=== PATIENT | female | born 2000 | race African-American/Black ===

== ENCOUNTER 2023-12-20 18:17 | Observation (INO) | payer OTHER, SELFPAY ==
[2023-12-20 18:56] LABS: Appearance Urine UA CLEAR; Bilirubin Urine UA NEGATIVE (NEGATIVE); Color Urine UA YELLOW; Glucose Urine UA NEGATIVE (Negative); Ketones Urine UA NEGATIVE (NEGATIVE); Leukocyte Esterase Urine UA 1+ (NEGATIVE); Nitrite Urine UA NEGATIVE (Negative); Occult Blood Urine UA NEGATIVE (Negative); Protein Urine UA NEGATIVE (Negative); Specific Gravity Urine UA 1.015 (1.000-1.035); Urobilinogen Urine UA 0.2 E.U./dL (0.2); pH Urine UA 6.5 (4.5-8.0)
[2023-12-20 19:08] LABS: Add Manual Diff / Slide Review NO; Basophils Absolute Auto 100 /uL (0-100); Basophils Percent Auto 0.5 % (0-2); Eosinophils Absolute Auto 100 /uL (0-450); Eosinophils Percent Auto 0.4 % (2-4); Hematocrit 32.4 % (36-46); Hemoglobin 10.7 g/dL (12.0-16.0); Lymphocytes Absolute Auto 1900 /uL (1100-4500); Lymphocytes Percent Auto 15.7 % (25-40); Mean Corpuscular HGB Conc 33.1 % (30-36); Mean Corpuscular Hemoglobin 29.6 PG (26-34); Mean Corpuscular Volume 89.4 fL (80-100); Monocytes Absolute Auto 900 /uL (0-900); Monocytes Percent Auto 7.6 % (3-14); Neutrophils Absolute Auto 9100 /uL (1500-7000); Neutrophils Percent Auto 75.8 % (50-75); Platelet Count 210 X10^3/uL (150-400); Red Blood Cell Count 3.63 X10^6/uL (4.0-5.2); Red Cell Distribution Width 13.1 % (11.6-14.8)
[2023-12-20 19:12] LABS: RBC Urine None Seen (0-5/HPF); Urine Volume 10mL (spun)
[2023-12-20 19:13] LABS: Bacteria Urine Many (>30); Culture Indicated Urine Specimen Cultured; Squamous Epithelial Cell Urine 1-5 /HPF (0-5/HPF); WBC Urine 5-10/HPF (0-5/HPF)
--- NOTE | 2023-12-20 20:05 | P.TNLD_ITS ---
Visit Information Visit Information Date of evaluation: 12/20/23 On-call OB Provider: Swathi Jesus Reason for Evaluation: Yes rule out labor Comments/Additional reasons for admission: abdominal cramping Vital Signs Vital Signs: BP 125/64 HR 73 SpO2 97% RA FHR: baseline 145bpm, mod jass, +accels, no decels, contractions q1-5min, palpate moderate PFSH Medical History Healthy adult Surgical History (Updated 11/19/23 @ 09:43 by Raquel Gupta, RN) No pertinent past surgical history Family History (Updated 11/19/23 @ 09:46 by Raquel Gupta, RN) Sister Type 1 diabetes Father Type 2 diabetes mellitus Uncle Type 2 diabetes mellitus Grandfather Kidney failure Grandmother Heart attack Social History marital status: number of children: 0 household members: spouse lives independently: No caregiver/support person: No housing: apartment pets and animals: No education level: high school occupational status: unemployed current occupational exposures/hazards: No special neil needs: No travel history: recent (cross country move) and over 6 months ago seatbelt use: always water heater temp set < 120 deg: Yes working smoke detector in home: Yes fire extinguisher in home: Yes carbon monox detector in home: Yes firearms in home: No do you feel safe at home: Yes Smoking Status: Never smoker second hand exposure: Yes ( vapes) alcohol intake: former (~3 glasses wine/week when not ) substance use type: marijuana (agrees not to use while /) during the past year weight has: decreased > 10 lbs (intentional w/ diet and exercise) well-balanced diet: about half the time daily servings fruits/ve-1 caffeine: No (only rarely) Type(s) of exercise: walking and weight lifting frequency: 3-4 times per week Review of Systems Review of Systems Narrative: as per HPI Exam Vital Signs (past 8 hours): as documented Narrative Exam Narrative: well-appearing gravid female NAD, talking and laughing through contractions per tocometry Const General: cooperative Nutritional Appearance: average body habitus HENMT Head: normal to inspection Neck Neck: normal visual inspection Resp Effort & Inspection: normal respiratory effort GI Inspection: normal to inspection Other: gravid, size c/w dates Uterus Location (Fundal Height): 33 Presentation: vertex Other: normal external female genitalia perineum and anus without rash or lesion, urethral meatus wnl cervix and vagina visually wnl, noted physiologic discharge without abnormality, cervix without erythema or exudate diffusely non-tender on bimanual exam GBS collected Skin General: no rashes or lesions noted Neuro General: patient alert Extrem General: normal to inspection Psych Appearance: grossly normal Objective Labs 12/20/23 19:00 Labs: Laboratory Results - last 24 hr 12/20/23 12/20/23 18:45 19:00 WBC 12.0 H RBC 3.63 L Hgb 10.7 L Hct 32.4 L MCV 89.4 MCH 29.6 MCHC 33.1 RDW 13.1 Plt Count 210 Neut % (Auto) 75.8 H Lymph % (Auto) 15.7 L [place] % (Auto) 7.6 Eos % (Auto) 0.4 L Baso % (Auto) 0.5 Neut # (Auto) 9100 H Lymph # (Auto) 1900 [place] # (Auto) 900 Eos # (Auto) 100 Baso # (Auto) 100 Urine Color Yellow Urine Appearance Clear Urine pH 6.5 Ur Specific Harrell 1.015 Urine Protein Negative Urine Glucose (UA) Negative Urine Ketones Negative Urine Occult Blood Negative Urine Nitrate Negative Urine Bilirubin Negative Urine Urobilinogen 0.2 Ur Leukocyte Esterase 1+ H Urine RBC None seen Urine WBC 5-10/hpf H Ur Squamous Epith Cells 1-5 /hpf Urine Bacteria Many (>30) H Ur Culture Indicated? Specimen cultured Vol Urine Centrifuged 10ml (spun) Evaluation Evaluation Baseline heart rate: 145 Variability: Moderate (11-25) monitor accelerations: Present Monitor Decelerations: Absent Contraction Frequency (minutes): 5 Uterine Contraction Intensity: Moderate Category of Tracing: Reactive Status: Category l Cervical dilation (cm): 0 Cervical effacement (%): 0 station: 0 Comments: very low station, cl/thk/hi/posterior Diagnosis, Plan/Disposition Plan/Disposition Plan: Threatened PTL without cervical dilation +bacteria in urine, clean catch will treat for uncomplicated UTI, 1g IV ceftriaxone now pt sensation of contractions improved with gentle IVF, continue full 1L bolus Reactive Cat 1 tracing, dc continuous monitoring If contractions space and pt remains asymptomatic anticipate dc to home following completion of IVF/IV abx GBS collected will send in jehovah's witness of recurrent PTL Strict labor/FM precautions, RTC as scheduled with Dr. Mendiola OB Disposition: home
[2023-12-20] MEDS: LACTATED RINGERS 1,000 ML 999 ML IV (20:21)
[2023-12-20] MEDS: cefTRIAXone 1,000 MG in SODIUM CHLORIDE 0.9% 100 ML 200 MG IV (20:21)
[2023-12-21 14:56] LABS: Strep Grp B PCR NEG for Grp B Strep
== END 2023-12-20 22:00 | disposition home or self-care (01) ==
LOC: LABOR 18:20
PROVIDERS: Admitting Provider Obstetrics & Gynecology; PCP Obstetrics & Gynecology; Referring Provider Obstetrics & Gynecology; Visit Provider Obstetrics & Gynecology
DX: O47.03 False labor before 37 completed weeks of gestation, third trimester (principal); Z3A.34 34 weeks gestation of pregnancy
CPT/HCPCS: 59025; 59050; 81001; 85025; 87086; 87653; 96360; G0378; G0379; J0696

== ENCOUNTER → 2023-12-25 09:39 | Outpatient (CLI) | payer OTHER, SELFPAY | PROVIDERS: PCP Obstetrics & Gynecology; Visit Provider Obstetrics & Gynecology | DX: R82.998 Other abnormal findings in urine (principal) | CPT/HCPCS: 87086 ==

== ENCOUNTER → 2024-01-01 07:15 | Outpatient (CLI) | payer OTHER, SELFPAY ==
--- NOTE | 2024-01-01 07:17 | DI.US.S_ITS ---
PROCEDURE: US OB LIMITED INDICATIONS: LGA OUTSIDE/PRIOR DATING DATA: Last menstrual period (LMP): 04/26/23. LMP-based estimated date of delivery (JOSE): 01/31/24. First dating scan (date and location): Not available. Estimated date of delivery (JOSE) from first dating scan: Not applicable. The calculations are made using the clinical JOSE of 01/31/24. TECHNIQUE: Real-time scanning was performed of the fetus, with image documentation and biometric measurements. Endovaginal scanning: Not performed COMPARISON: None. FINDINGS: General: A single living intrauterine gestation is present. Presentation: Vertex. Placenta: Placental position is anterior , without previa. Amniotic fluid index: 23.1 cm, normal range is 5-24 cm. Single deepest vertical pocket is 8.2 cm. heart rate: 133 beats per minute. Maternal cervical canal: Not well seen biometrics: Biparietal diameter: 9.0 cm, 36 weeks two days Head circumference: 31.9 cm, 36 weeks 0 days Abdominal circumference: 32.2 cm, 36 weeks one day Femur length: 7.0 cm, 35 weeks six days Clinically estimated gestational age: 35 weeks five days Composite gestational age from present scan: 36 weeks one day Estimated weight and percentile: 2831 g, 59th percentile IMPRESSION: Single living intrauterine with estimated weight at the 59th percentile. Amniotic fluid volume at the upper end of normal. Anterior placenta without abruption. We strive to produce accurate, complete, and clear reports of imaging services. To assist us in improving patient care, this report was composed using standard report templates and voice recognition software. Therefore, it may contain abnormal punctuation, insertions and/or omissions. Occasional wrong-word or sound-alike substitutions may occur. Though we review the report and make efforts to correct it, we do recommend that the report be read carefully in proper context to recognize any text inaccuracies. Dictated by: Amy Ellis M.D. on 01/01/2024 at 11:12 Approved by: Amy Ellis M.D. on 01/01/2024 at 11:20
== END ==
LOC: US 07:16
PROVIDERS: Referring Provider Obstetrics & Gynecology; Visit Provider Obstetrics & Gynecology
DX: O26.843 Uterine size-date discrepancy, third trimester (principal); Z3A.36 36 weeks gestation of pregnancy
CPT/HCPCS: 76815

== ENCOUNTER 2024-01-06 10:29 | Outpatient (CLI) | payer OTHER, SELFPAY ==
[2024-01-06 10:53] LABS: Appearance Urine UA CLEAR; Bilirubin Urine UA NEGATIVE (NEGATIVE); Color Urine UA YELLOW; Glucose Urine UA NEGATIVE (Negative); Ketones Urine UA NEGATIVE (NEGATIVE); Leukocyte Esterase Urine UA TRACE (NEGATIVE); Nitrite Urine UA NEGATIVE (Negative); Occult Blood Urine UA NEGATIVE (Negative); Protein Urine UA NEGATIVE (Negative); Urobilinogen Urine UA 0.2 E.U./dL (0.2); pH Urine UA 5.5 (4.5-8.0)
[2024-01-06 10:54] LABS: Urine Volume 10mL (spun)
[2024-01-06 10:55] LABS: Bacteria Urine Few (2-10); Culture Indicated Urine Specimen Cultured; RBC Urine None Seen (0-5/HPF); Squamous Epithelial Cell Urine 0-1 /HPF (0-5/HPF); WBC Urine 1-5/HPF (0-5/HPF)
== END 2024-01-06 11:05 | disposition home or self-care (01) ==
LOC: LABOR 11:10 → OB 01-09 09:35
PROVIDERS: Obstetrics & Gynecology; Referring Provider Obstetrics & Gynecology; Visit Provider Obstetrics & Gynecology
DX: Z36.9 Encounter for antenatal screening, unspecified (principal)
CPT/HCPCS: 59025; 81001; 87086; 87210; G0378; G0379

== ENCOUNTER → 2024-01-08 11:03 | Outpatient (CLI) | payer OTHER, SELFPAY ==
[2024-01-09 11:04] LABS: Strep Grp B PCR NEG for Grp B Strep
== END ==
PROVIDERS: Visit Provider Obstetrics & Gynecology
DX: Z34.03 Encounter for supervision of normal first pregnancy, third trimester (principal); Z3A.36 36 weeks gestation of pregnancy; R82.998 Other abnormal findings in urine
CPT/HCPCS: 87086; 87653

== ENCOUNTER 2024-01-15 09:23 | Outpatient (CLI) | payer OTHER, SELFPAY | END 2024-01-15 09:57 | disposition home or self-care (01) | LOC: OB 01-16 08:53 | PROVIDERS: Referring Provider Obstetrics & Gynecology; Visit Provider Obstetrics & Gynecology | DX: Z34.03 Encounter for supervision of normal first pregnancy, third trimester (principal); Z3A.37 37 weeks gestation of pregnancy | CPT/HCPCS: 59025; G0378; G0379 ==

== ENCOUNTER 2024-01-22 12:07 | Outpatient (CLI) | payer OTHER, SELFPAY | END 2024-01-22 12:50 | disposition home or self-care (01) | LOC: LABOR 12:20 → OB 01-23 14:04 | PROVIDERS: Referring Provider Obstetrics & Gynecology; Visit Provider Obstetrics & Gynecology | DX: Z34.03 Encounter for supervision of normal first pregnancy, third trimester (principal); Z3A.38 38 weeks gestation of pregnancy | CPT/HCPCS: 59025; G0378; G0379 ==

== ENCOUNTER 2024-01-29 10:31 | Observation (INO) | payer OTHER, SELFPAY | END 2024-01-29 11:17 | disposition home or self-care (01) | PROVIDERS: Admitting Provider Obstetrics & Gynecology; Referring Provider Obstetrics & Gynecology; Visit Provider Obstetrics & Gynecology | DX: O40.3XX0 Polyhydramnios, third trimester, not applicable or unspecified (principal); Z3A.39 39 weeks gestation of pregnancy | CPT/HCPCS: 59025; G0378; G0379 ==

== ENCOUNTER 2024-02-02 18:21 | Observation (INO) | payer OTHER, SELFPAY ==
[2024-02-02] MEDS: MORPHINE 10 MG/ML INJ IM (20:08)
[2024-02-02] MEDS: hydrOXYzine 50 MG/ML INJ 25 MG IM (20:08)
== END 2024-02-02 20:25 | disposition home or self-care (01) ==
LOC: LABOR 18:23
PROVIDERS: Admitting Provider Obstetrics & Gynecology; Referring Provider Obstetrics & Gynecology; Visit Provider Obstetrics & Gynecology
DX: O47.1 False labor at or after 37 completed weeks of gestation (principal); Z3A.40 40 weeks gestation of pregnancy; O48.0 Post-term pregnancy
CPT/HCPCS: 59025; 96372; G0378; G0379; J2270; J3410

== ENCOUNTER 2024-02-03 14:37 | Inpatient (IN) | payer OTHER, SELFPAY ==
--- NOTE | 2024-02-03 15:45 | PM.OBTRLD ---
Visit Information Visit Information Date of evaluation: 02/03/24 Primary OB Provider: Elijah Mendiola On-call OB Provider: Swathi Jesus Reason for Evaluation: Yes rule out labor Comments/Additional reasons for admission: 23yo G1 at 40w3d presents to triage for r/o labor at late term. Patient was seen in triage <24h ago for same, cl/75/hi at that time, symptoms improved with morphine/stadol and pt was discharged to home. Today patient was out [place] [employer] when the contractions returned, now feel stronger and more regular. SVE per RN /-2 on admission to triage. +FM (baby girl Koki Irvin), denies LOF, dysuria. Vital Signs Vital Signs: maternal VSS as reviewed in [facility] Medical History Healthy adult Surgical History (Updated 11/19/23 @ 09:43 by Raquel Gupta RN) No pertinent past surgical history Family History (Updated 11/19/23 @ 09:46 by Raquel Gupta RN) Sister Type 1 diabetes Father Type 2 diabetes mellitus Uncle Type 2 diabetes mellitus Grandfather Kidney failure Grandmother Heart attack Social History marital status: number of children: 0 household members: spouse lives independently: No caregiver/support person: No housing: apartment pets and animals: No education level: high school occupational status: unemployed current occupational exposures/hazards: No special neil needs: No travel history: recent (cross country move) and over 6 months ago seatbelt use: always water heater temp set < 120 deg: Yes working smoke detector in home: Yes fire extinguisher in home: Yes carbon monox detector in home: Yes firearms in home: No do you feel safe at home: Yes Smoking Status: Never smoker second hand exposure: Yes ( vapes) alcohol intake: former (~3 glasses wine/week when not ) substance use type: marijuana (agrees not to use while /) during the past year weight has: decreased > 10 lbs (intentional w/ diet and exercise) well-balanced diet: about half the time daily servings fruits/ve-1 caffeine: No (only rarely) Type(s) of exercise: walking and weight lifting frequency: 3-4 times per week Review of Systems Review of Systems ROS: Yes All systems reviewed with the patient and are negative except as otherwise documented Exam Const General: cooperative and other (tearful) Nutritional Appearance: obese Resp Effort & Inspection: normal respiratory effort Other: gravid abd, non-tender Skin General: no rashes or lesions noted Neuro General: patient alert, patient awake and patient oriented x3 Psych Judgment: judgment good Evaluation Evaluation Baseline heart rate: 135 Variability: Moderate (11-25) monitor accelerations: Present Monitor Decelerations: Absent Contraction Frequency (minutes): 7 Uterine Contraction Intensity: Moderate Category of Tracing: Reactive Status: Category l Cervical dilation (cm): 1 Cervical effacement (%): 80 station: -2 Diagnosis, Plan/Disposition Plan/Disposition Plan: 23yo G1 at 40w3d, presents to triage for r/o labor at late term Prodromal labor at late term Pt counseled on recommendation for trial of gentle IVF hydration, PO benadryl, heat packs; if symptoms improve than this is prodromal labor and with reactive Cat 1 tracing (reactive NST) it would be appropriate for her to be discharged to home with precautions, planned return to office as scheduled 02/04 to discuss scheduling of IOL with her primary OB, Dr. Mendiola. Alternatively if patient feels that she is unable to further cope with prodromal labor at home, admission for augmentation would be appropriate however may not be in line with patient's desire for unmedicated childbirth. In shared decision making model patient amenable to trial of gentle parenteral hydration given increase in physical activity and suspected dehydration. Plan interval reassessment 2h, further care coordination at that time pending clinical course.
[2024-02-03] MEDS: LACTATED RINGERS 1,000 ML 1000 ML IV (15:56)
[2024-02-03] MEDS: diphenhydrAMINE 25 MG TABLET PO (16:08)
[2024-02-03] MEDS: CALCIUM CARBONATE 500 MG TAB PO (16:08)
--- NOTE | 2024-02-03 17:27 | P.HPOB_ITS ---
OB HPI Date/Time Date of admission: 02/03/24 Date Patient Seen: 02/03/24 Time Patient Seen: 17:27 History of Present Condition Chief complaint: OBSERVATION OF LABOR : 1 Estimated Date of Delivery: 01/31/24 Estimated Gestational Age (weeks): 40w3d Narrative: Yamilka Mtz is a 23 year old female 40w3d by self-reported first trimester dating (transfer of care to our practice at 29w5d secondary to move) who presented to triage for evaluation of r/o labor, same evaluation <24h for same complaint. On arrival pt 80/-2 with noted progressive cervical change to 390/-2 approximately 2h thereafter. Patient counseled on and in agreement with recommendation for admission for expectant management of labor at late term. course has been complicated by class 2 maternal obesity (BMI 32), excessive maternal weight gain of without evidence of macrosomia (44# total weight gain; EFW 2831g/59th% at 35wga), borderline polyhydramnios (WILDA 23.1/SDP 8.3cm at 35wga). Pt had weekly surveillance since time of identified polyhydramnios that has been reassuring. Note while patient had attempted to upload her prior [facility] records to portal EMR at time of this documentation no outside records are available for review. At time of transfer pt did report normal 1h OGTT value (83) to primary OB provider as well as mild anemia on iron supplementation. Patient is able to access her prior EMR via her phone and is at time of this documentation in process of emailing her prior [facility] records to our facility for upload. See RN OBIX documentation for full transcribed result detail, all infectious serologies reviewed and wnl Indications Other reason(s) for admission: Labor at late term History of Present care: good care Dating criteria: LMP confirmed by 1st trimester US (per pt report, no OSH US avail for review at this time ) Ultrasounds: normal mid trimester US Abnormal ultrasound findings: Interval growth scan at 35w5d ([facility]) EFW 2831 +/- 419g (59th%) no AC acceleration noted WILDA 23.1 SDP 8.2cm Obstetrical complications: other (excessive maternal weight gain, 44#) Medical complications: none (class 2 obesity ) Preadmission Labs Blood type: A (+) positive -: Antibody screen: negative, GBS status: negative, HBsAG: negative (OSH records, see OBIX), HIV: negative (OSH records, see OBIX) and RPR/VDLR: negative (OSH records, see OBIX) -: Chlamydia screen: not detected (OSH records, see OBIX) and Gonorrhea screen: not detected (OSH records, see OBIX ) -: Rubella: immune (OSH records, see OBIX) and Varicella: immune (OSH records, see OBIX ) HCT: 11 1 hr GTT: 83 Evaluation Evaluation Baseline heart rate: 145 Variability: Moderate (11-25) monitor accelerations: Present Monitor Decelerations: Absent Contraction Frequency (minutes): 4 Uterine Contraction Intensity: Moderate Category of Tracing: Reactive Status: Category l Dilation (cm): 3 Effacement (%): 90 Dilation: 3-4 cm Effacement: >/=80% station: -2 Position of cervix: mid Consistency: soft Holcomb score: 9 [facility] Medical History Healthy adult Surgical History (Updated 11/19/23 @ 09:43 by Raquel Gupta RN) No pertinent past surgical history Family History (Updated 11/19/23 @ 09:46 by Raquel Gupta, [place]) Sister Type 1 diabetes Father Type 2 diabetes mellitus Uncle Type 2 diabetes mellitus Grandfather Kidney failure Grandmother Heart attack Social History marital status: number of children: 0 household members: spouse lives independently: No caregiver/support person: No housing: apartment pets and animals: No education level: high school occupational status: unemployed current occupational exposures/hazards: No special neil needs: No travel history: recent (cross country move) and over 6 months ago seatbelt use: always water heater temp set < 120 deg: Yes working smoke detector in home: Yes fire extinguisher in home: Yes carbon monox detector in home: Yes firearms in home: No do you feel safe at home: Yes Smoking Status: Former smoker second hand exposure: Yes ( vapes) alcohol intake: former (~3 glasses wine/week when not ) substance use type: marijuana (agrees not to use while /) during the past year weight has: decreased > 10 lbs (intentional w/ diet and exercise) well-balanced diet: about half the time daily servings fruits/ve-1 caffeine: No (only rarely) Type(s) of exercise: walking and weight lifting frequency: 3-4 times per week Meds Home Medications and Allergies Home Medications Medication Instructions Recorded Confirmed Type vitamin-ferrous sulfate See Rx Instructions .Route .COMPLEX 11/19/23 02/03/24 History 27 mg iron-folic acid 0.8 mg tablet ferrous sulfate 137 mg (45 mg 137 mg PO DAILY #90 tabs 01/15/24 02/03/24 Rx iron) tablet,extended release (Slow Fe) Allergies Allergy/AdvReac Type Severity Reaction Status Date / Time No Known Drug Allergies Allergy Verified 02/03/24 18:38 Review of Systems Review of Systems ROS: Yes All systems reviewed with the patient and are negative except as otherwise documented OB Exam HENMT Head: normal to inspection Mouth: moist mucous membranes Eyes General: appearance normal, both eyes and all related structures Resp Effort & Inspection: normal respiratory effort Cardio Rate: regular rate Extremities Lower extremity: Yes normal to inspection GI Inspection: normal to inspection Other: gravid, salvador cepahlic 7.5-8# External Female Exam: Yes normal external appearance Presentation: vertex Objective Labs 02/03/24 17:21 Assessment and Plan Assessment and Plan Assessment and Plan narrative: 23yo G1 at 40w3d, admit for management of labor at late term Labor Maternal VSS, Cat 1 tracing OSH care records not available for review at time of admission documentation, pt in process of emailing for purposes of EMR upload CBC, T&S on admission, inital infectious serologies negative per visual review of OSH records, GBS negative Pt unsure regarding analgesia in labor, counseled on available modalities and desires conservative supportive measures for now Note historical borderline polyhdramnios without evidence of maternal GDM or macrosomia EFW 2831g/59th% @ 35w5d wga WILDA 23.1 reviewed increased risk of abruption and cord prolapse in buddhism of [facility] with bedside RN, notify provider with any concerns strong family h/o DM (sister, father), consider 2h GTT vs annual A1c Patient is consented for vaginal, vaginal operative and delivery. Patient additionally consents to transfusion of blood products as medically indicated. Risks, benefits and alternatives to all aforementioned interventions were reviewed with patient and partner, all questions answered to the best of my ability. Patient verbalized understanding and desires to proceed with plan of care as above. Time Spent with Patient Total time spent with greater than 50% in coordination of care (as documented) at patient's floor/unit and/or counseling patient:: 15-24 minutes
[2024-02-03 17:58] LABS: Add Manual Diff / Slide Review NO; Basophils Absolute Auto 100 /uL (0-100); Basophils Percent Auto 0.4 % (0-2); Eosinophils Absolute Auto 100 /uL (0-450); Eosinophils Percent Auto 0.5 % (2-4); Lymphocytes Absolute Auto 2200 /uL (1100-4500); Lymphocytes Percent Auto 14.4 % (25-40); Mean Corpuscular HGB Conc 32.2 % (30-36); Mean Corpuscular Hemoglobin 29.1 PG (26-34); Mean Corpuscular Volume 90.4 fL (80-100); Monocytes Absolute Auto 1200 /uL (0-900); Monocytes Percent Auto 7.8 % (3-14); Neutrophils Absolute Auto 11700 /uL (1500-7000); Neutrophils Percent Auto 76.9 % (50-75); Platelet Count 240 X10^3/uL (150-400); Red Blood Cell Count 3.76 X10^6/uL (4.0-5.2); Red Cell Distribution Width 13.4 % (11.6-14.8); White Blood Cell Count 15.3 X10^3/uL (4.5-11.0)
[2024-02-03] MEDS: ONDANSETRON 4 MG/2 ML INJ IV (18:20)
[2024-02-03 18:33] VITALS: BP 125/62
[2024-02-03] MEDS: LACTATED RINGERS 1,000 ML 100 ML IV (18:58)
--- NOTE | 2024-02-03 19:39 | PM.AN.REGBLK ---
Regional Block Pre-procedure Procedure: Continuous Lumbar Epidural for L&D Attending OB provider: Swathi Jesus Exam narrative: active labor, moderate discomfort. Able to talk and give consent normally. lungs clear. Heart RRR ASA Class: II Labs: Hct 34.0 % (36-46) L 02/03/24 17:21 Plt Count 240 X10^3/uL (150-400) 02/03/24 17:21 Medications: Current Medications Generic Name Dose Route Start Last Admin Trade Name Freq PRN Reason Stop Dose Admin Carboprost Tromethamine 250 mcg 02/03/24 17:21 Carboprost 250 Mcg/Ml Ampul IM Q90M PRN Bleeding Diphenhydramine HCl 25 mg 02/03/24 19:33 Diphenhydramine 50 Mg/Ml Vial IV Q10M PRN Pruritis Diphenhydramine HCl 25 mg 02/03/24 19:36 Diphenhydramine 50 Mg/Ml Vial IV 02/04/24 19:37 Q3HR PRN PRURITUS Ephedrine Sulfate 10 mg 02/03/24 19:33 Ephedrine 50 Mg/Ml Vial IV Q5M PRN Blood pressure decrease more than 20% of baseline. Lactated Ringer's 1,000 mls @ 100 mls/hr 02/03/24 17:30 02/03/24 18:58 Lactated Ringers IV 100 mls/hr CONT ROB Administration Oxytocin/Lactated Ringer's 30 unit in 500 mls @ 200 mls/hr 02/03/24 17:21 Oxytocin Premix IV CONT PRN Bleeding Protocol Tranexamic Acid 1,000 mg/ 100 mls @ 200 mls/hr 02/03/24 17:21 Sodium Chloride IV NOW PRN Bleeding Oxytocin/Lactated Ringer's 30 unit in 500 mls @ 2 mls/hr 02/03/24 17:30 Oxytocin Premix IV TITRATE ROB Protocol 2 MILLIUNIT/MIN FENT 2MCG/ML BUPIV 0.125% EPI 200 mcg in 100 mls @ 6 mls/hr 02/03/24 19:45 Fentanyl/Bupiv/Ns 2mcg/Ml - 0.125% EPIDURAL CONT ROB Lidocaine HCl 20 ml 02/03/24 17:21 Lidocaine 1% 20 Ml INJ INTRA-OP PRN Post Delivery Methylergonovine Maleate 0.2 mg 02/03/24 17:21 Methylergonovine 0.2 Mg Tablet PO Q6HR PRN Heavy Bleeding Methylergonovine Maleate 0.2 mg 02/03/24 17:21 Methylergonovine 0.2 Mg/Ml Vial IM NOW PRN Bleeding Mineral Oil 30 ml 02/03/24 17:21 Mineral Oil 30 Ml Udc TOP PRN PRN Version Misoprostol 800 mcg 02/03/24 17:21 Misoprostol 200 Mcg Tablet AL NOW PRN Bleeding Misoprostol 400 mcg 02/03/24 17:21 Misoprostol 200 Mcg Tablet SL NOW PRN Bleeding Nalbuphine HCl 2.5 mg 02/03/24 19:33 Nalbuphine 20 Mg/Ml Ampul IV Q10M PRN Pruritis Nalbuphine HCl 5 mg 02/03/24 19:36 Nalbuphine 20 Mg/Ml Ampul IV Q6H PRN PRURITIS Naloxone HCl 0.2 mg 02/03/24 17:21 Naloxone 0.4 Mg/Ml Vial IV Q2MIN PRN Opiate Reversal Naloxone HCl 0.4 mg 02/03/24 19:36 Naloxone 0.4 Mg/Ml Vial IV Q2MIN PRN Opiate Reversal Naloxone HCl 0.1 mg 02/03/24 19:36 Naloxone 0.4 Mg/Ml Vial IV 02/03/24 19:37 NOW ONE Ondansetron HCl 4 mg 02/03/24 17:21 02/03/24 18:20 Ondansetron 4 Mg/2 Ml Inj IV 4 mg Q4HR PRN Administration Nausea And Vomiting Ondansetron HCl 4 mg 02/03/24 19:36 Ondansetron 4 Mg/2 Ml Inj IV 02/04/24 19:37 Q6HR PRN Nausea Oxytocin 10 unit 02/03/24 17:21 Oxytocin 10 Unit/Ml Vial IM NOW PRN Bleeding Sodium Chloride 10 ml 02/03/24 21:00 Sodium Chloride 0.9% Flush IV BID ROB Sodium Chloride 10 ml 02/03/24 17:21 Sodium Chloride 0.9% Flush IV PRN PRN Flush Sodium Chloride 10 ml 02/03/24 21:00 Sodium Chloride 0.9% Flush IV BID ROB Sodium Chloride 10 ml 02/03/24 19:33 Sodium Chloride 0.9% Flush IV PRN PRN Flush Allergies: Allergies Allergy/AdvReac Type Severity Reaction Status Date / Time No Known Drug Allergies Allergy Verified 02/03/24 18:38 Procedure Insertion date: 02/03/24 Insertion time: : Prep/Local: betadine x3 Interspace: L3-4 Patient position: sitting Needle: 18 gauge Hustead Loss of resistance with: saline RITA at (cm): 6 Catheter placed at SKIN (cm): 13 Catheter in SPACE (cm): 7 Sensory level: T10 Insertion: No CSF, No Blood, No Paresthesia with insertion, No Paresthesia with injection and No Test dose reaction Initial Medications TEST DOSE time: : TEST DOSE: 1.5% lidocaine with epinephrine 1:200k (mL): 3 BOLUS DOSE time: : BOLUS DOSE (mL): 10 BOLUS DOSE med: 0.25% bupivacaine (and 100mcg Fentanyl) Infusion INFUSION: 0.125% bupivacaine and with fentanyl 2 mcg/mL Initial rate (mL/hr): 8 Subsequent interventions: [id number] Called to evaluate patient about discomfort. Level checked to ice. T8-9 on Right, T11-12 on Left. Turned with left side down and bolused 6ml of 0.25% bupivacaine. Pump restarted with the same settings. Post-procedure Anesthesia date START: 02/03/24 Anesthesia time START: 19:10 Anesthesia date END: 02/04/24 Anesthesia time END: 08:03 Post-procedure Anesthesia Assessment: Yes CV function: HR/BP stable, Yes Resp function: RR/sat/airway adequate, Yes Post-op hydration adequate, Yes Pain control adequate, Yes Nausea & vomiting absent, Yes Temperature > 36 C, Yes Mental status appropriate and No Anesthesia complications
[2024-02-04] MEDS: FENT 2MCG/ML BUPIV 0.125% EPI 200 MCG/100 ML PLAST..BAG 6 MCG EPIDURAL (03:11)
--- NOTE | 2024-02-04 08:20 | PM.OBPRVD ---
Events: Meconium Stained Fluid Labor & Delivery Delivery date: 02/04/24 Intrapartal Events: None Cervical ripening method: none Induction method: none Delivery monitor: external FHT and external uterine Route of delivery: Episiotomy description: None L&D Laceration Description: Perineal - 1st Degree Delivery repair: chromic Estimated blood loss (mL): 200 Anesthesia Type: Epidural Complications: None Narrative: Following a 5 minute 2nd stage, the patient pushed spontaneously over an intact perineum a viable and vigorous female infant with Apgars of 8/9 and a weight of 3237 g. No cord entanglement or shoulder dystocia was noted. Skin to skin contact was initiated immediately and the oropharynx was gently suctioned with bulb suction. No respiratory difficulties were noted and delayed cord clamping was performed. Once the umbilical cord was doubly clamped and cut, a sample of cord blood was obtained for routine studies. The placenta was delivered easily with gentle cord traction and suprapubic countertraction. Intravenous Pitocin was initiated immediately upon delivery of the placenta and post delivery blood losses were minimized. Inspection of the placenta revealed a central inserting 3 vessel cord with the placenta intact and membranes meconium-stained. A superficial perineal first-degree laceration was noted and due to bleeding at the site, a single [id number] stitch using 3-0 chromic catgut suture was required to render the laceration hemostatic. Sponge, instruments, and needle counts were correct at the end of the delivery process which was well tolerated by both mother and . Baby 1: gender: Female Presentation: vertex Position: Left Occiput Anterior Placenta delivery description: Spontaneous Cord Vessel Description: 3 Vessels score (1 min): 8 weight: 7 lb 2.182 oz
[2024-02-04] MEDS: ACETAMINOPHEN 325 MG TABLET 650 MG PO (09:34)
[2024-02-04] MEDS: IBUPROFEN 600 MG TABLET PO (09:35)
[2024-02-04] MEDS: DERMOPLAST SPRAY 20% 60 ML 1 SPRAY TOP (21:39)
[2024-02-05 06:13] LABS: Add Manual Diff / Slide Review NO; Basophils Absolute Auto 100 /uL (0-100); Basophils Percent Auto 0.4 % (0-2); Eosinophils Absolute Auto 100 /uL (0-450); Eosinophils Percent Auto 0.7 % (2-4); Hematocrit 28.9 % (36-46); Hemoglobin 9.6 g/dL (12.0-16.0); Lymphocytes Absolute Auto 2400 /uL (1100-4500); Lymphocytes Percent Auto 16.2 % (25-40); Mean Corpuscular HGB Conc 33.4 % (30-36); Mean Corpuscular Hemoglobin 29.7 PG (26-34); Mean Corpuscular Volume 88.8 fL (80-100); Monocytes Absolute Auto 1400 /uL (0-900); Monocytes Percent Auto 9.1 % (3-14); Neutrophils Absolute Auto 11100 /uL (1500-7000); Neutrophils Percent Auto 73.6 % (50-75); Platelet Count 218 X10^3/uL (150-400); Red Blood Cell Count 3.25 X10^6/uL (4.0-5.2); Red Cell Distribution Width 13.3 % (11.6-14.8)
--- NOTE | 2024-02-05 09:07 | P.DS_ITS ---
Discharge Providers Provider Date of admission: 02/03/24 14:37 Discharge Date: 02/05/24 Primary care physician: Aminah HUBER Provider Consults: 02/05/24 08:18 Consult to Telecommunications Linesworker Routine Comment: Discharge provider: Elijah Mendiola MD Summary Hospital Course Date Patient Seen: 02/05/24 Time Patient Seen: 09:07 Diagnoses: Intrauterine gestation, 40+ 3 weeks delivered by spontaneous vaginal Anemia, chronic Hospital Course: Yamilka was admitted on the evening of 02/03/2024 in early labor. She progressed spontaneously with an epidural in place and delivered early on the morning of 02/04/2024 a viable female with Apgars of 8/9 and a weight of 3237 g ( 7 lb 2.2 oz). Following delivery both mother and baby have done extremely well with the mother experiencing prompt return of bowel and bladder function, she is ambulating independently, tolerating regular diet, and her pain is well controlled with oral pain medications. She will be discharged at this time in an afebrile normotensive condition to home after counseling regarding precautionary symptoms, limitations of activity, medications, plans for follow- up which will be in 6 weeks. Medications at the time of discharge include resumption of vitamins and ferrous sulfate daily. She will use [id number] Tylenol and/ or ibuprofen as needed for pain. Peripartum Data Infant Delivery Method: Natural Vaginal Laceration Description: Perineal - 1st Degree Episiotomy description: None complications: none [place] 1: Gender: Female Disposition of : home Discharge Diagnosis (1) Normal vaginal delivery: Status: Acute Status at Discharge Cognitive/behavioral status at discharge: oriented Functional status at discharge: independent ambulation Overall status at discharge: patient is progressing back to baseline Time Spent with Patient Time attestation: Total time spent providing and/or coordinating discharge services: Objective Labs 02/05/24 06:00 Labs: Laboratory Results - last 24 hr 02/05/24 06:00 WBC 15.0 H RBC 3.25 L Hgb 9.6 L Hct 28.9 L MCV 88.8 MCH 29.7 MCHC 33.4 RDW 13.3 Plt Count 218 Neut % (Auto) 73.6 Lymph % (Auto) 16.2 L [place] % (Auto) 9.1 Eos % (Auto) 0.7 L Baso % (Auto) 0.4 Neut # (Auto) 82502 H Lymph # (Auto) 2400 [place] # (Auto) 1400 H Eos # (Auto) 100 Baso # (Auto) 100 Exam Const General: cooperative and comfortable Nutritional Appearance: average body habitus Orientation: alert and oriented x3 HENMT Head: normal to inspection, atraumatic and abrasion Ears: hearing grossly normal bilaterally Face and sinus: face symmetric Eyes General: appearance normal, both eyes and all related structures Conjunctivae: conjunctivae normal Sclera: sclerae normal EOM: EOM intact bilaterally Neck Neck: normal visual inspection Resp Effort & Inspection: normal respiratory effort and able to speak in complete sentences Auscultation: clear to auscultation bilaterally Cardio Rate: regular rate Rhythm: regular rhythm Heart Sounds: S1 normal, S2 normal and no murmurs GI Inspection: normal to inspection Palpation: soft and no hepatosplenomegaly External Female Exam: other (No significant bleeding noted) Extrem General: no calf tenderness Psych Appearance: grossly normal Mental Status: mental status grossly normal Speech and Movement: speech and movement normal Mood: congruent mood Affect: normal affect Attitude: cooperative Thought Process: normal Thought Content: normal Judgment: judgment good Discharge Plan Discharge Plan Patient Disposition: Home Provider Discharge Comment: Please review the written instructions you received when you were discharged from the hospital. Your follow-up appointment is scheduled for 6 weeks after delivery and I look forward to seeing you then. If however in the meanwhile you have any questions, concerns, or other issues, please contact me through the office phone at [phone], or via the patient portal. Discharge orders & Medications Prescriptions: Continued Slow Fe 137 mg (45 mg iron) tablet extended release 137 mg PO DAILY Qty: 90 0RF vit-ferrous sulfat-FA 27 mg iron- 0.8 mg tablet See Rx Instructions .ROUTE .COMPLEX Rx Instructions: Take as directed Follow up/Referrals: Provider,Aminah HUBER [Primary Care Provider] - Elijah Mendiola MD [Physician] - 03/17/24 10:00 am (Please follow up with provider as scheduled!) Discharge Health Status Multidrug resistant organism: No MDRO Diet/Activity/Treatments Diet: Diet as Tolerated Activity: As tolerated Other treatments: [id number] Tylenol and/or ibuprofen may be used for pain relief. Rjot-fns-[id number] stool softeners and/or MiraLax may be used as needed for constipation. Skin/Wound/Dressing Care Report to your healthcare provider any signs of infection, such as:: chills, fever, increased pain, unusual drainage and unusual redness Dressing: N/A Visit Report/Discharge Packet Instructions: DI for Labor and Delivery, Vaginal , DI for and Nipple Soreness Discharge Data Primary Care Provider: Aminah Willams
[2024-02-05 14:45] VITALS: BP 119/68; PULSE 84; RESP 18; TEMP 36.7
== END 2024-02-05 14:45 | disposition home or self-care (01) | DRG 807 ==
PROVIDERS: Obstetrics & Gynecology; Admitting Provider Obstetrics & Gynecology; Referring Provider Obstetrics & Gynecology; Visit Provider Obstetrics & Gynecology
DX: O99.214 Obesity complicating childbirth (principal); Z37.0 Single live birth; O40.3XX0 Polyhydramnios, third trimester, not applicable or unspecified; O70.0 First degree perineal laceration during delivery; Z3A.40 40 weeks gestation of pregnancy
CPT/HCPCS: 36415; 59050; 85025; 86850; 86900; 86901; G0379; J2405; J3010

== ENCOUNTER 2025-08-10 19:20 | Emergency (ER) | payer OTHER, SELFPAY ==
[2025-08-10] VITALS (7 sets, daily range): BP systolic 113–126; BP diastolic 56–65; PULSE 57–66; RESP 16–17; TEMP 37.6; O2SAT 98–100; BMI 27.4
--- NOTE | 2025-08-10 19:47 | DI.US.S_ITS ---
PROCEDURE: US OB <= 14 WEEKS FETUS INDICATIONS: abdominal cramping, N/V OUTSIDE/PRIOR DATING DATA: Last menstrual period (LMP): 06/23/2025. LMP-based estimated date of delivery (JOSE): 03/30/2026. First dating scan (date and location): 08/10/2025. Estimated date of delivery (JOSE) from first dating scan: 04/01/2026. TECHNIQUE: Real-time scanning was performed of the fetus and maternal pelvic organs, with image documentation. Endovaginal scanning was also performed to better visualize the fetus and maternal ovaries. COMPARISON: None. FINDINGS: Embryo: There is intrauterine gestation with yolk sac present. [place]-rump length measures 0.7 cm corresponding to estimated age of 6 weeks, 4 days. Heart rate: 123 beats per minute Maternal organs: Ovaries are within normal limits. Left corpus luteum cyst visualized. IMPRESSION: Single intrauterine gestation with estimated age of 6 weeks, 4 days based on crown-rump length which is concordant with clinical dating. heart rate detected. Approved by: Violette Wright M.D.,Ph.D. on 08/10/2025 at 22:18
[2025-08-10 20:34] LABS: Add Manual Diff / Slide Review NO; Hematocrit 39.2 % (36-46); Hemoglobin 13.3 g/dL (12.0-16.0); Lymphocytes Absolute Auto 1800 /uL (1100-4500); Mean Corpuscular HGB Conc 34.0 % (30-36); Mean Corpuscular Hemoglobin 29.1 PG (26-34); Mean Corpuscular Volume 85.7 fL (80-100); Platelet Count 282 X10^3/uL (150-400)
[2025-08-10] MEDS: ONDANSETRON 4 MG/2 ML INJ IV (20:34)
[2025-08-10 20:46] LABS: Alanine Aminotransferase 15 IU/L (<35); Albumin 4.7 g/dL (3.5-5.0); Albumin Globulin Ratio 1.4 (1.0-2.8); Alkaline Phosphatase 54 U/L (38-126); Blood Urea Nitrogen 12 mg/dL (7-17); Calcium 9.2 mg/dL (8.4-10.2); Carbon Dioxide 23 mmol/L (22-32); Chloride 103 mmol/L (98-107); Estimated Glomerular Filt Rate > 60 mL/min (>60); Globulin 3.4 g/dL (1.7-4.1); Glucose 84 mg/dL (70-99); HEMOLYSIS < 15 (0-50); Potassium 3.8 mmol/L (3.4-5.1); Sodium 137 mmol/L (137-145); Total Protein 8.1 g/dL (6.3-8.2)
--- NOTE | 2025-08-10 21:54 | ED_ITS ---
HPI - General Chief complaint: Abdominal Pain Stated complaint: 7 weeks/abd pain//n/v Time Seen by Provider: 08/10/25 20:37 Source: patient, RN notes reviewed and old records reviewed Mode of arrival: Ambulatory Limitations: no limitations History of Present Illness HPI Narrative: 24-year-old female has no other reported medical issues presents with complaint of some nausea or vomiting proximally 6 weeks and 4 days by dates. Patient states she just recently found out she is . She has a little bit of mild epigastric discomfort but not persistent. She states she has has a hard time keeping down food or fluids in the last 2 or 3 days. She denies fevers or chills. No chest pain or shortness of breath. She had nose denies any lower abdominal pain or cramping. She denies any vaginal bleeding or spotting. No dysuria urgency or frequency. She denies any diarrhea or constipation. Patient states no daily medications. No known drug allergies. No tobacco, no alcohol, no reported recreational drugs. Patient has not established care yet. Related Data Previous Rx's ?Medication ?Instructions ?Recorded ondansetron 4 mg disintegrating 4 mg PO Q6H PRN nausea and 08/10/25 tablet vomiting #10 tabs Allergies Allergy/AdvReac Type Severity Reaction Status Date / Time No Known Drug Allergies Allergy Verified 08/10/25 19:37 Review of Systems Review of Systems ROS Unobtainable: All systems reviewed & are unremarkable except as noted in HPI and below Exam Narrative Exam Narrative: GENERAL: Alert and oriented x three, well-appearing female in mild distress HEENT: Head normocephalic, atraumatic, EOMI, pupils reactive, face symmetric, moist mucous membranes NECK: Supple, full range of motion CARDIOVASCULAR: Regular rate and rhythm without murmurs, rubs or gallops. RESPIRATORY: Breath sounds equal bilaterally, no wheezes rales or rhonchi. ABDOMEN: Soft, nontender. Nondistended. Normoactive bowel sounds all 4 quadrants. No guarding or rebound, rigidity, no mass : No CVA tenderness EXTREMITIES: Normal range of motion, no clubbing or edema. Neurovascularly intact NEUROLOGICAL: Cranial nerves II through XII grossly intact. Moving all extremities SKIN: Warm, dry, no petechiae, no rashes or lesions. Initial Vital Signs Initial Vital Signs: Vital Signs Temperature 99.7 F H 08/10/25 19:38 Pulse Rate 58 L 08/10/25 19:38 Respiratory Rate 16 08/10/25 19:38 Blood Pressure 117/60 08/10/25 19:38 Pulse Oximetry 100 08/10/25 19:38 Oxygen Delivery Method Room Air 08/10/25 19:38 Course Orders Ordered: ED Orders 08/10/25 19:47 US OB <= 14 weeks fetus Stat 08/10/25 20:18 ABO RH Type Stat Complete Blood Count AUTO DIFF Stat Comprehensive Metabolic Panel Stat HCG Quantitative /Beta subunit Stat 08/10/25 22:00 Urine Microscopic Stat Discontinued Medications Sodium Chloride (Normal Saline 0.9%) 1,000 mls @ 1,000 mls/hr IV BOLUS ONE Stop: 08/10/25 23:22 Last Admin: 08/10/25 22:35 Dose: 1,000 mls/hr Ondansetron HCl (Ondansetron 4 Mg/2 Ml Inj) 4 mg IV NOW ONE Stop: 08/10/25 20:28 Last Admin: 08/10/25 20:34 Dose: 4 mg Documented By: NING Vital Signs Vital signs: Vital Signs - 8 hr 08/10/25 19:38 08/10/25 20:03 08/10/25 22:15 Temperature 99.7 F H Pulse Rate 58 L 58 L 59 L Respiratory Rate 16 16 Blood Pressure 117/60 113/57 L Pulse Oximetry 100 98 100 Oxygen Delivery Method Room Air Room Air 08/10/25 22:16 08/10/25 22:16 08/10/25 22:30 Temperature Pulse Rate 57 L Respiratory Rate 17 Blood Pressure 123/62 122/59 L Pulse Oximetry 100 Oxygen Delivery Method Room Air 08/10/25 22:30 08/10/25 23:00 08/10/25 23:00 Temperature Pulse Rate 58 L 66 Respiratory Rate Blood Pressure 123/65 Pulse Oximetry 100 100 Oxygen Delivery Method 08/10/25 23:06 08/10/25 23:06 Temperature Pulse Rate 63 Respiratory Rate Blood Pressure 126/56 L Pulse Oximetry 100 Oxygen Delivery Method MDM - OB/Uterine Contractions Lab Data 08/10/25 20:18 08/10/25 20:18 Labs: Lab Results 08/10/25 08/10/25 Range/Units 19:46 20:18 WBC 9.0 (4.5-11.0) X10^3/uL RBC 4.57 (4.0-5.2) X10^6/uL Hgb 13.3 (12.0-16.0) g/dL Hct 39.2 (36-46) % MCV 85.7 (80-100) fL MCH 29.1 (26-34) PG MCHC 34.0 (30-36) % RDW 12.8 (11.6-14.8) % Plt Count 282 (150-400) X10^3/uL Neut % (Auto) 71.9 (50-75) % Lymph % (Auto) 19.4 L (25-40) % [place] % (Auto) 8.0 (3-14) % Eos % (Auto) 0.2 L (2-4) % Baso % (Auto) 0.5 (0-2) % Neut # (Auto) 6500 (4865-6943) /uL Lymph # (Auto) 1800 (4329-3222) /uL [place] # (Auto) 700 (0-900) /uL Eos # (Auto) 0 (0-450) /uL Baso # (Auto) 0 (0-100) /uL Sodium 137 (137-145) mmol/L Potassium 3.8 (3.4-5.1) mmol/L Chloride 103 (98-107) mmol/L Carbon Dioxide 23 (22-32) mmol/L BUN 12 (7-17) mg/dL Creatinine 0.65 (0.52-1.04) mg/dL Estimated GFR > 60 (>60) mL/min BUN/Creatinine Ratio 18.5 (6-22) Glucose 84 (70-99) mg/dL Calcium 9.2 (8.4-10.2) mg/dL Total Bilirubin 1.1 (0.2-1.3) mg/dL AST 24 (14-36) IU/L ALT 15 (<35) IU/L Alkaline Phosphatase 54 (38-126) U/L Total Protein 8.1 (6.3-8.2) g/dL Albumin 4.7 (3.5-5.0) g/dL Globulin 3.4 (1.7-4.1) g/dL Albumin/Globulin Ratio 1.4 (1.0-2.8) HCG, Quant 60739 mIU/mL Urine RBC 0-1/hpf (0-5/HPF) Urine WBC 0-1/hpf (0-5/HPF) Ur Squamous Epith Cells 10-30 /hpf H D (0-5/HPF) Amorphous Sediment 1+ Urine Bacteria Few (2-10) H (None) Urine Mucus 2+ H (Negative) Ur Culture Indicated? Cult not indicated Vol Urine Centrifuged 10ml (spun) Blood Type A Positive Urine Dip Bedside Urine Glucose Negative Bedside Urine Bilirubin - Negative Bedside Urine Ketone +++ 80 Urine Specific [place] 1.030 Bedside Urine Occult Blood - Negative Bedside Urine pH 6.0 Bedside Urine Protein +/- 15 Bedside Urine Urobilinogen +/- 1mg Bedside Urine Nitrite - Negative Bedside Urine Leukocytes + 70 Esterase MDM Narrative Medical decision making narrative: Labs show normal white count, normal hemoglobin and platelets, electrolytes BUN and creatinine are appropriate, LFTs are normal hCG quantitative is 94,830 Patient she will be contaminated with 10-30 squamous, few bacteria 1 white cell 1 RBC. OB ultrasound, single intrauterine gestation with the estimated age of 6 weeks 4 days concordant with the clinical dating heart rate detected. 123 beats per minutes. Patient have Zofran and fluids. 24-year-old female proximally 6 weeks by dates. Patient notes little bit of nausea or vomiting with food. She notes some mild epigastric discomfort but nontender on exam. She denies any lower abdominal pain no cramping, no vaginal bleeding. Workup shows single intrauterine gestation consistent with dates. Patient's labs are appropriate, hCG is 94,830. Patient was prescribed a short course of ondansetron with a contact for care. Discharge Plan Departure Patient Disposition: Home Clinical Impression: Nausea and vomiting during Instructions: Nausea of (Alternative Therapy) Activity Restrictions/Additional Instructions: Follow up with your physician, contacts included below for junior programmer if you need a provider. Your ultrasound shows intrauterine gestation at 6 weeks and 4 days. With the an estimated date of delivery of 03/30/2026. You can take Zofran 1 tablet every 6 hours as needed for nausea. Prescription sent to [facility] in [place]. Please return if you develop fevers new or worsening abdominal back or flank pain, persistent vomiting, lightheadedness or passing out or other new or concerning changes. Prescriptions: New ondansetron 4 mg tablet,disintegrating 4 mg PO Q6H PRN (Reason: nausea and vomiting) Qty: 10 0RF Referrals: Tereso Abbott MD [Primary Care Provider, Family Practice] Swathi Jesus MD [Physician, [facility] PILOT/NAVIGATOR/DDS OPERATOR] Stand Alone Forms: Patient Portal/API, Work Release Note
[2025-08-10] MEDS: SODIUM CHLORIDE 0.9% 1,000 ML 1000 ML IV (22:35)
[2025-08-10 23:10] LABS: Culture Indicated Urine Cult Not Indicated
== END 2025-08-10 23:16 | disposition home or self-care (01) ==
PROVIDERS: Emergency Provider Emergency Medicine; PCP Family Medicine
DX: O26.891 Other specified pregnancy related conditions, first trimester (principal); R11.2 Nausea with vomiting, unspecified; R10.13 Epigastric pain; Z3A.01 Less than 8 weeks gestation of pregnancy
CPT/HCPCS: 36415; 76801; 76817; 80053; 81003; 81015; 84702; 85025; 86900; 86901; 96374; 99284; J2405; J7030